=== PATIENT | female | born 1935 | race Hispanic/Latino ===

== ENCOUNTER 2018-08-13 20:13 | Inpatient (IN) | payer MEDICARE ==
--- NOTE | 2018-08-13 20:50 | Emergency Department Report ---
ED General Adult HPI - General Chief complaint: Medical Clearance Stated complaint: ELEVATED BUN AND CREATININE Time Seen by Provider: 08/13/18 20:21 Source: EMS Mode of arrival: Stretcher Limitations: Other - History of Present Illness Initial comments: 83-year-old female with history of Alzheimer's, chronic renal insufficiency who presents from [facility] for acute on chronic renal failure and UTI. Patient has labs from 12 days ago that showed BUN 28 and creatinine of 1.8. Patient's presents today with lab values of BUN of 91 and creatinine of 1.8. Patient has no complaints. -: unknown Associated Symptoms: denies: chest pain, headaches, nausea/vomiting, shortness of breath - Related Data Allergies Allergy/AdvReac Type Severity Reaction Status Date / Time Sulfa (Sulfonamide Allergy Unknown Verified 08/13/18 20:37 Antibiotics) ED Review of Systems ROS: Stated complaint: ELEVATED BUN AND CREATININE Other details as noted in HPI Comment: Unobtainable due to pts medical conditions (dementia) ED Past Medical Hx - Past Medical History Hx Dementia: Yes - Social History Smoking Status: Unknown if ever smoked Substance Use Type: None ED Physical Exam - General Limitations: Other General appearance: alert, in no apparent distress - Head Head exam: Present: atraumatic, normocephalic - Eye Eye exam: Present: normal appearance - ENT ENT exam: Present: mucous membranes moist - Neck Neck exam: Present: normal inspection - Respiratory Respiratory exam: Present: normal lung sounds bilaterally. Absent: respiratory distress - Cardiovascular Cardiovascular Exam: Present: regular rate, normal rhythm - GI/Abdominal GI/Abdominal exam: Present: soft, tenderness (mild suprapubic). Absent: distended - Extremities Exam Extremities exam: Present: normal inspection - Neurological Exam Neurological exam: Present: altered (oriented to self), CN II-XII intact. Absent: motor sensory deficit - Psychiatric Psychiatric exam: Present: normal affect, normal mood - Skin Skin exam: Present: warm, dry, intact, normal color ED Course Vital Signs 08/13/18 08/13/18 21:45 22:45 Pulse Rate 79 Respiratory 16 18 Rate Blood Pressure 157/38 [Right] O2 Sat by Pulse 98 Oximetry ED Medical Decision Making - Lab Data Result diagrams: 08/13/18 21:07 08/13/18 21:07 - Medical Decision Making 83-year-old female with dementia and history of CKD, from [facility] pres ents an acute on chronic renal failure. On 08/01 patient had the BUN 29 and creatinine of 1.8. Currently patient has BUN of 91 with creatinine of 3.9. Potassium and bicarbonate are normal. Patient does have evidence of UTI on UA. Urine culture sent, Rocephin given. Vitals are stable. Patient is pleasant with no complaints. Paperwork from [place] report no other symptoms. IV fluids given. ARF likely due to infection and dehydration. Will admit to hospitalist for further evaluation. - Differential Diagnosis ARF, UTI, hyperkalemia Critical care attestation.: If time is entered above; I have spent that time in minutes in the direct care of this critically ill patient, excluding procedure time. ED Disposition Clinical Impression: UTI (urinary tract infection), Acute on chronic renal insufficiency Disposition: OP ADMIT IP TO THIS HOSP Is pt being admited?: Yes Condition: Stable Referrals: CECILIA GOODEN MD [Primary Care Provider] - 3-5 Days Time of Disposition: 23:15
[2018-08-13 21:43] LABS: Basophils % (Auto) 0.2 % (0.0-1.8); Eosinophils # (Auto) 0.1 K/mm3 (0.0-0.4); Eosinophils % (Auto) 0.5 % (0.0-4.3); Hematocrit 37.9 % (30.3-42.9); Hemoglobin 13.2 gm/dl (10.1-14.3); Lymphocytes # (Auto) 1.6 K/mm3 (1.2-5.4); Lymphocytes % (Auto) 12.1 % (13.4-35.0); Mean Corpuscular HGB Conc 35 % (30-34); Mean Corpuscular Volume 89 fl (79-97); Monocytes # (Auto) 0.9 K/mm3 (0.0-0.8); Monocytes % (Auto) 6.5 % (0.0-7.3); Platelet Count 247 K/mm3 (140-440); Red Blood Count 4.27 M/mm3 (3.65-5.03)
[2018-08-13 22:16] LABS: Calcium 9.8 mg/dL (8.4-10.2)
[2018-08-13] MEDS ORDERED: NACL 0.9% 1000 ML 1,000 ML IV ONE (22:24)
[2018-08-13 22:59] LABS: Bacteria,Urine 2+ /HPF (Negative); Bilirubin,Urine NEG (Negative); Blood,Urine NEG (Negative); Color,Urine Yellow (Yellow); Urobilinogen,Urine < 2.0 mg/dL (<2.0)
[2018-08-13] MEDS ORDERED: ROCEPHIN/NS 1 GM/50 ML 1 GM/50 ML BAG IV ONE (23:07)
[2018-08-13] MEDS ORDERED: SODIUM CHLORIDE FLUSH SYRINGE 10 ML IV PRN (23:49)
[2018-08-13] MEDS ORDERED: ZOFRAN IV PRN (23:49)
[2018-08-13] MEDS ORDERED: TYLENOL PO PRN (23:49)
--- NOTE | 2018-08-13 23:49 | History and Physical Report ---
<EMILY LOW - Last Filed: 08/14/18 02:07> History of Present Illness Date of examination: 08/13/18 Date of admission: 08/13/2018 History of present illness: Patient is an 80 female with PMHx of dementia who was sent to the ER by [facility] for acute/on chronic renal insufficiency and UTI. Patient is alert but disoriented in no acute distress, she denies any pain, denies burning in micturition, denies urinary urgency, frequency or hematuria, denies back. In the ER laboratory values showed BUN 91, creatinine 2.9, elevated WBC, a UA was positive for increased WBC. Patient was unable to provide medical history due to dementia. Past History Past Medical History: other (dementia) Medications and Allergies Allergies Allergy/AdvReac Type Severity Reaction Status Date / Time Sulfa (Sulfonamide Allergy Unknown Verified 08/13/18 20:37 Antibiotics) Review of Systems ROS unobtainable: due to mental status (Dementia) Exam - Constitutional Vitals: Temp Pulse Resp BP Pulse Ox 79 18 157/38 98 08/13/18 21:45 08/13/18 22:45 08/13/18 21:45 08/13/18 21:45 General appearance: Present: no acute distress - EENT Eyes: Present: EOM intact ENT: hearing intact - Neck Neck: Present: supple, normal ROM - Respiratory Respiratory effort: normal Respiratory: bilateral: CTA - Cardiovascular Rhythm: regular Peripheral Pulses: within normal limits - Abdominal General gastrointestinal: Present: deferred Female genitourinary: Present: deferred - Rectal Rectal Exam: deferred - Integumentary Integumentary: Present: warm, dry - Musculoskeletal Musculoskeletal: strength equal bilaterally - Psychiatric Psychiatric: cooperative - Neurologic Neurologic: moves all extremities Results - Labs CBC & Chem 7: 08/13/18 21:07 08/13/18 21:07 Labs: Laboratory Last Values WBC 13.3 K/mm3 (4.5-11.0) H 08/13/18 21:07 RBC 4.27 M/mm3 (3.65-5.03) 08/13/18 21:07 Hgb 13.2 gm/dl (10.1-14.3) 08/13/18 21:07 Hct 37.9 % (30.3-42.9) 08/13/18 21:07 MCV 89 fl (79-97) 08/13/18 21:07 MCH 31 pg (28-32) 08/13/18 21:07 MCHC 35 % (30-34) H 08/13/18 21:07 RDW 13.0 % (13.2-15.2) L 08/13/18 21:07 Plt Count 247 K/mm3 (140-440) 08/13/18 21:07 Lymph % (Auto) 12.1 % (13.4-35.0) L 08/13/18 21:07 Josephine % (Auto) 6.5 % (0.0-7.3) 08/13/18 21:07 Eos % (Auto) 0.5 % (0.0-4.3) 08/13/18 21:07 Baso % (Auto) 0.2 % (0.0-1.8) 08/13/18 21:07 Lymph # 1.6 K/mm3 (1.2-5.4) 08/13/18 21:07 Josephine # 0.9 K/mm3 (0.0-0.8) H 08/13/18 21:07 Eos # 0.1 K/mm3 (0.0-0.4) 08/13/18 21:07 Baso # 0.0 K/mm3 (0.0-0.1) 08/13/18 21:07 Seg Neutrophils % 80.7 % (40.0-70.0) H 08/13/18 21:07 Seg Neutrophils # 10.7 K/mm3 (1.8-7.7) H 08/13/18 21:07 Sodium 139 mmol/L (137-145) 08/13/18 21:07 Potassium 4.5 mmol/L (3.6-5.0) 08/13/18 21:07 Chloride 100.7 mmol/L (98-107) 08/13/18 21:07 Carbon Dioxide 23 mmol/L (22-30) 08/13/18 21:07 20 mmol/L 08/13/18 21:07 BUN 91 mg/dL (7-17) H 08/13/18 21:07 3.9 mg/dL (0.7-1.2) H 08/13/18 21:07 Estimated GFR 11 ml/min 08/13/18 21:07 23 % 08/13/18 21:07 Glucose 181 mg/dL (65-100) H 08/13/18 21:07 Calcium 9.8 mg/dL (8.4-10.2) 08/13/18 21:07 Yellow (Yellow) 08/13/18 Unknown Slightly-cloudy (Clear) 08/13/18 Unknown 5.0 (5.0-7.0) 08/13/18 Unknown Ur Specific Joseph 1.009 (1.003-1.030) 08/13/18 Unknown 100 mg/dl mg/dL (Negative) 08/13/18 Unknown 50 mg/dL (Negative) 08/13/18 Unknown Neg mg/dL (Negative) 08/13/18 Unknown Neg (Negative) 08/13/18 Unknown Neg (Negative) 08/13/18 Unknown Neg (Negative) 08/13/18 Unknown < 2.0 mg/dL (<2.0) 08/13/18 Unknown Ur Leukocyte Esterase Sm (Negative) 08/13/18 Unknown 19.0 /HPF (0.0-6.0) H 08/13/18 Unknown 1.0 /HPF (0.0-6.0) 08/13/18 Unknown U Epithel Cells (Auto) < 1.0 /HPF (0-13.0) 08/13/18 Unknown 2+ /HPF (Negative) 08/13/18 Unknown Assessment and Plan Assessment and plan: 1. Acute on chronic renal insufficiency 2. UTI 3. Leukocytosis 4. Hyperglycemia 5. Dementia (baseline unknown) Plan: This is associated for acute renal insufficiency Consult nephrology for evaluation Started on IV antibiotics for UTI IV fluids for hydration and renal perfusion Monitor blood glucose twice a day 1 observation, patient is [id number] Monitor for safety Further plan per hospital course Advance Directives: Yes VTE prophylaxis?: Chemical Plan of care discussed with patient/family: Yes <ISAAC KRAMER - Last Filed: 08/14/18 23:44> History of Present Illness Date of admission: 08/13/18 23:50 Medications and Allergies Active Meds: Active Medications Acetaminophen (Tylenol) 650 mg PO Q4H PRN PRN Reason: Pain MILD(1-3)/Fever >100.5/[place] Last Admin: 08/14/18 22:11 Dose: 650 mg Documented by: Amlodipine Besylate (Norvasc) 5 mg PO DAILY [facility] Aspirin (Baby Aspirin) 81 mg PO QDAY [facility] Atorvastatin Calcium (Lipitor) 20 mg PO QHS [facility] Last Admin: 08/14/18 22:10 Dose: 20 mg Documented by: Furosemide (Lasix) 40 mg PO QDAY [facility] Heparin Sodium (Porcine) (Heparin) 5,000 unit SUB-Q Q12HR [facility] Last Admin: 08/14/18 22:05 Dose: 5,000 unit Documented by: Ceftriaxone Sodium (Rocephin/Ns 1 Gm/50 Ml) 1 gm in 50 mls @ 100 mls/hr IV Q24HR [facility]; Protocol Last Admin: 08/14/18 09:32 Dose: 100 mls/hr Documented by: Sodium Chloride (Nacl 0.9% 1000 Ml) 1,000 mls @ 100 mls/hr IV DIRECT [facility] Last Admin: 08/14/18 05:43 Dose: 100 mls/hr Documented by: Lisinopril (Zestril) 5 mg PO QDAY [facility] Memantine (Namenda) 10 mg PO BID [facility] Last Admin: 08/14/18 22:10 Dose: 10 mg Documented by: Metoprolol Tartrate (Lopressor) 25 mg PO BID [facility] Last Admin: 08/14/18 22:10 Dose: 25 mg Documented by: Multivitamins/Minerals (Theragran-M Tab) 1 each PO DAILY [facility] Ondansetron HCl (Zofran) 4 mg IV Q8H PRN PRN Reason: Nausea And Vomiting Sodium Chloride (Sodium Chloride Flush Syringe 10 Ml) 10 ml IV BID [facility] Last Admin: 08/14/18 22:10 Dose: 10 ml Documented by: Sodium Chloride (Sodium Chloride Flush Syringe 10 Ml) 10 ml IV PRN PRN PRN Reason: LINE FLUSH Exam - Constitutional Vitals: Temp Pulse Resp BP Pulse Ox 99.0 F 95 H 18 169/51 93 08/14/18 20:42 08/14/18 20:42 08/14/18 20:42 08/14/18 20:42 08/14/18 20:42 Results - Labs CBC & Chem 7: 08/13/18 21:07 08/13/18 21:07 Labs: Laboratory Last Values WBC 13.3 K/mm3 (4.5-11.0) H 08/13/18 21:07 RBC 4.27 M/mm3 (3.65-5.03) 08/13/18 21:07 Hgb 13.2 gm/dl (10.1-14.3) 08/13/18 21:07 Hct 37.9 % (30.3-42.9) 08/13/18 21:07 MCV 89 fl (79-97) 08/13/18 21:07 MCH 31 pg (28-32) 08/13/18 21:07 MCHC 35 % (30-34) H 08/13/18 21:07 RDW 13.0 % (13.2-15.2) L 08/13/18 21:07 Plt Count 247 K/mm3 (140-440) 08/13/18 21:07 Lymph % (Auto) 12.1 % (13.4-35.0) L 08/13/18 21:07 Josephine % (Auto) 6.5 % (0.0-7.3) 08/13/18 21:07 Eos % (Auto) 0.5 % (0.0-4.3) 08/13/18 21:07 Baso % (Auto) 0.2 % (0.0-1.8) 08/13/18 21:07 Lymph # 1.6 K/mm3 (1.2-5.4) 08/13/18 21:07 Josephine # 0.9 K/mm3 (0.0-0.8) H 08/13/18 21:07 Eos # 0.1 K/mm3 (0.0-0.4) 08/13/18 21:07 Baso # 0.0 K/mm3 (0.0-0.1) 08/13/18 21:07 Seg Neutrophils % 80.7 % (40.0-70.0) H 08/13/18 21:07 Seg Neutrophils # 10.7 K/mm3 (1.8-7.7) H 08/13/18 21:07 Sodium 139 mmol/L (137-145) 08/13/18 21:07 Potassium 4.5 mmol/L (3.6-5.0) 08/13/18 21:07 Chloride 100.7 mmol/L (98-107) 08/13/18 21:07 Carbon Dioxide 23 mmol/L (22-30) 08/13/18 21:07 20 mmol/L 08/13/18 21:07 BUN 91 mg/dL (7-17) H 08/13/18 21:07 3.9 mg/dL (0.7-1.2) H 08/13/18 21:07 Estimated GFR 11 ml/min 08/13/18 21:07 23 % 08/13/18 21:07 Glucose 181 mg/dL (65-100) H 08/13/18 21:07 Calcium 9.8 mg/dL (8.4-10.2) 08/13/18 21:07 Yellow (Yellow) 08/13/18 Unknown Slightly-cloudy (Clear) 08/13/18 Unknown 5.0 (5.0-7.0) 08/13/18 Unknown Ur Specific Joseph 1.009 (1.003-1.030) 08/13/18 Unknown 100 mg/dl mg/dL (Negative) 08/13/18 Unknown 50 mg/dL (Negative) 08/13/18 Unknown Neg mg/dL (Negative) 08/13/18 Unknown Neg (Negative) 08/13/18 Unknown Neg (Negative) 08/13/18 Unknown Neg (Negative) 08/13/18 Unknown < 2.0 mg/dL (<2.0) 08/13/18 Unknown Ur Leukocyte Esterase Sm (Negative) 08/13/18 Unknown 19.0 /HPF (0.0-6.0) H 08/13/18 Unknown 1.0 /HPF (0.0-6.0) 08/13/18 Unknown U Epithel Cells (Auto) < 1.0 /HPF (0-13.0) 08/13/18 Unknown 2+ /HPF (Negative) 08/13/18 Unknown Assessment and Plan Assessment and plan: A/P: Acute on CRF UTI I personally discussed the patient with the [employer] and I agree with the above assessment and plan
[2018-08-14] MEDS: NACL 0.9% 1000 ML 1,000 ML IV SCH (05:43)
[2018-08-14] MEDS: HEPARIN SUB-Q SCH ×2 (09:32→22:05)
[2018-08-14] MEDS: ROCEPHIN/NS 1 GM/50 ML 1 GM/50 ML BAG IV SCH (09:32)
[2018-08-14] MEDS: SODIUM CHLORIDE FLUSH SYRINGE 10 ML IV SCH ×2 (09:33→22:10)
--- NOTE | 2018-08-14 10:14 | Consultation ---
History of Present Illness - Reason for Consult Consult date: 08/14/18 acute renal failure, chronic renal failure Requesting physician: EMILY LOW - History of Present Illness Patient is an 80 female with PMHx of dementia who was sent to the ER by [facility] for acute/on chronic renal insufficiency and UTI. Patient is alert but disoriented in no acute distress, she denies any pain, denies burning in micturition, denies urinary urgency, frequency or hematuria, denies back. In the ER laboratory values showed BUN 91, creatinine 2.9, elevated WBC, a UA was positive for increased WBC. Patient was unable to provide medical history due to dementia. Past History Past Medical History: other (dementia) Review of Systems ROS unobtainable: due to mental status (Dementia) Past History Past Medical History: other (dementia) Medications and Allergies Allergies Allergy/AdvReac Type Severity Reaction Status Date / Time Sulfa (Sulfonamide Allergy Unknown Verified 08/13/18 20:37 Antibiotics) Active Meds: Active Medications Acetaminophen (Tylenol) 650 mg PO Q4H PRN PRN Reason: Pain MILD(1-3)/Fever >100.5/[place] Heparin Sodium (Porcine) (Heparin) 5,000 unit SUB-Q Q12HR [facility] Last Admin: 08/14/18 09:32 Dose: 5,000 unit Documented by: Ceftriaxone Sodium (Rocephin/Ns 1 Gm/50 Ml) 1 gm in 50 mls @ 100 mls/hr IV Q24HR [facility]; Protocol Last Admin: 08/14/18 09:32 Dose: 100 mls/hr Documented by: Sodium Chloride (Nacl 0.9% 1000 Ml) 1,000 mls @ 100 mls/hr IV DIRECT [facility] Last Admin: 08/14/18 05:43 Dose: 100 mls/hr Documented by: Ondansetron HCl (Zofran) 4 mg IV Q8H PRN PRN Reason: Nausea And Vomiting Sodium Chloride (Sodium Chloride Flush Syringe 10 Ml) 10 ml IV BID [facility] Last Admin: 08/14/18 09:33 Dose: 10 ml Documented by: Sodium Chloride (Sodium Chloride Flush Syringe 10 Ml) 10 ml IV PRN PRN PRN Reason: LINE FLUSH Exam - Vital Signs Vital signs: Vital Signs Pulse Resp BP Pulse Ox 79 16 157/38 98 08/13/18 21:45 08/13/18 21:45 08/13/18 21:45 08/13/18 21:45 - Physical Exam Narrative exam: General appearance: Present: no acute distress - EENT Eyes: Present: EOM intact ENT: hearing intact - Neck Neck: Present: supple, normal ROM - Respiratory Respiratory effort: normal Respiratory: bilateral: CTA - Cardiovascular Rhythm: regular Peripheral Pulses: within normal limits - Abdominal General gastrointestinal: Present: deferred Female genitourinary: Present: deferred - Rectal Rectal Exam: deferred - Integumentary Integumentary: Present: warm, dry - Musculoskeletal Musculoskeletal: strength equal bilaterally - Psychiatric Psychiatric: cooperative - Neurologic Neurologic: moves all extremities Results - Lab Results 08/13/18 21:07 08/13/18 21:07 Most recent lab results Calcium 9.8 mg/dL (8.4-10.2) 08/13/18 21:07 Assessment and Plan Impression: 1. Acute on chronic renal insufficiency 2. UTI 3. Leukocytosis 4. Hyperglycemia 5. Dementia (baseline unknown) 6. 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
--- NOTE | 2018-08-14 13:52 | Progress Note ---
Assessment and Plan 1. Acute on chronic renal insufficiency - due to vasomotor nephropathy 2. UTI 3. Leukocytosis due to UTI 4. Hyperglycemia 5. Dementia, at her baseline per daughter Plan: Consulted nephrology for evaluation Started on IV antibiotics for UTI IV fluids for hydration and renal perfusion Monitor blood glucose twice a day Resume home meds Monitor for safety, Further plan per hospital course d/c to SNF when renal function improves Subjective Date of service: 08/14/18 Interval history: Patient seen and examined. Medical records and medication list reviewed. No acute event overnight noted by the RN. Patient denies any chest pain or difficulty breathing. Patient is tolerating diet. Discussed plan of care at bedside with patient's daughter. Objective - Exam Narrative Exam: General appearance: Present: no acute distress - EENT Eyes: Present: EOM intact ENT: hearing intact - Neck Neck: Present: supple, normal ROM - Respiratory Respiratory effort: normal Respiratory: bilateral: CTA - Cardiovascular Rhythm: regular Peripheral Pulses: within normal limits - Abdominal General gastrointestinal: Present: deferred Female genitourinary: Present: deferred - Rectal Rectal Exam: deferred - Integumentary Integumentary: Present: warm, dry - Musculoskeletal Musculoskeletal: strength equal bilaterally - Psychiatric Psychiatric: cooperative - Neurologic Neurologic: moves all extremities, not oriented to time or place - Constitutional Vitals: Vital Signs - 12hr 08/14/18 08/14/18 08/14/18 03:10 06:45 07:37 Temperature 98.2 F 97.4 F L Pulse Rate 89 70 76 Respiratory 16 18 Rate Blood Pressure 129/52 149/47 O2 Sat by Pulse 95 96 Oximetry 08/14/18 08/14/18 08/14/18 07:38 13:08 13:09 Temperature 98.6 F Pulse Rate 78 90 89 Respiratory 18 Rate Blood Pressure 165/45 O2 Sat by Pulse 99 95 94 Oximetry - Labs CBC & Chem 7: 08/13/18 21:07 08/15/18 05:05 Labs: Abnormal lab results 08/13/18 08/13/18 08/13/18 Range/Units 21:07 21:07 Unknown WBC 13.3 H (4.5-11.0) K/mm3 MCHC 35 H (30-34) % RDW 13.0 L (13.2-15.2) % Lymph % (Auto) 12.1 L (13.4-35.0) % Coke # 0.9 H (0.0-0.8) K/mm3 Seg Neutrophils % 80.7 H (40.0-70.0) % Seg Neutrophils # 10.7 H (1.8-7.7) K/mm3 BUN 91 H (7-17) mg/dL Creatinine 3.9 H (0.7-1.2) mg/dL Glucose 181 H (65-100) mg/dL Urine WBC (Auto) 19.0 H (0.0-6.0) /HPF
[2018-08-14] MEDS ORDERED: LOPRESSOR PO SCH (22:00)
[2018-08-14] MEDS: NAMENDA PO SCH (22:10)
[2018-08-15] MEDS: NACL 0.9% 1000 ML 1,000 ML IV SCH (02:33)
[2018-08-15 06:32] LABS: Calcium 8.8 mg/dL (8.4-10.2)
[2018-08-15] MEDS ORDERED: NORVASC PO SCH ×2 (10:00)
[2018-08-15] MEDS ORDERED: LASIX PO SCH (10:00)
[2018-08-15] MEDS ORDERED: ZESTRIL PO SCH (10:00)
[2018-08-15] MEDS: THERAGRAN-M Tab PO SCH (10:13)
[2018-08-15] MEDS: BABY ASPIRIN PO SCH (10:13)
[2018-08-15] MEDS: HEPARIN SUB-Q SCH ×2 (10:13→21:12)
[2018-08-15] MEDS: NAMENDA PO SCH ×2 (10:13→21:11)
[2018-08-15] MEDS: ROCEPHIN/NS 1 GM/50 ML 1 GM/50 ML BAG IV SCH (10:14)
--- NOTE | 2018-08-15 10:57 | Progress Note ---
Assessment and Plan Impression: 1. Acute on chronic renal insufficiency 2. UTI 3. Leukocytosis 4. Hyperglycemia 5. Dementia (baseline unknown) 6. 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 Subjective Date of service: 08/15/18 Principal diagnosis: zach Interval history: resting in bed Objective - Exam Narrative Exam: General appearance: Present: no acute distress - EENT Eyes: Present: EOM intact ENT: hearing intact - Neck Neck: Present: supple, normal ROM - Respiratory Respiratory effort: normal Respiratory: bilateral: CTA - Cardiovascular Rhythm: regular Peripheral Pulses: within normal limits - Abdominal General gastrointestinal: Present: deferred Female genitourinary: Present: deferred - Rectal Rectal Exam: deferred - Integumentary Integumentary: Present: warm, dry - Musculoskeletal Musculoskeletal: strength equal bilaterally - Psychiatric Psychiatric: cooperative - Neurologic Neurologic: moves all extremities - Vital Signs Vital signs: Vital Signs - 12hr 08/15/18 08/15/18 08/15/18 00:19 01:43 04:35 Temperature 98.0 F 98.1 F Pulse Rate 79 72 Respiratory 18 18 20 Rate Blood Pressure 171/51 167/45 O2 Sat by Pulse 94 95 Oximetry 08/15/18 08/15/18 06:00 08:49 Temperature Pulse Rate 85 64 Respiratory Rate Blood Pressure 109/87 O2 Sat by Pulse 97 Oximetry - Lab 08/13/18 21:07 08/15/18 05:05 Most recent lab results Calcium 8.8 mg/dL (8.4-10.2) 08/15/18 05:05 Medications & Allergies - Medications Allergies/Adverse Reactions: Allergies Sulfa (Sulfonamide Antibiotics) Allergy (Verified 08/13/18 20:37) Unknown Home Medications: Home Medications Medication Instructions Recorded Confirmed Last Taken Type Aspirin [Aspirin BABY CHEW TAB] 81 mg PO QDAY 08/14/18 08/14/18 Unknown History AtorvaSTATin [Lipitor] 20 mg PO QHS 08/14/18 08/14/18 Unknown History Cinacalcet [Sensipar] 30 mg PO QDAY 08/14/18 08/14/18 Unknown History Furosemide [Lasix TAB] 40 mg PO QDAY 08/14/18 08/14/18 Unknown History Lisinopril [Zestril] 5 mg PO QDAY 08/14/18 08/14/18 Unknown History Memantine HCl [Namenda Xr] 28 mg PO DAILY 08/14/18 08/14/18 Unknown History Metoprolol Tartrate 25 mg PO BID 08/14/18 08/14/18 Unknown History Multivit-Min/Iron Fum/Folic AC 1 tab PO DAILY 08/14/18 08/14/18 Unknown History [Acdlu-Yundzax-Xpudukth Tablet] Omeprazole 20 mg PO DAILY 08/14/18 08/14/18 Unknown History Sevelamer Carbonate [Renvela] 800 mg PO DAILY 08/14/18 08/14/18 Unknown History amLODIPine [Norvasc] 5 mg PO DAILY 08/14/18 08/14/18 Unknown History Active Medications: Generic Name Dose Route Start Last Admin Trade Name Freq PRN Reason Stop Dose Admin Acetaminophen 650 mg 08/13/18 23:49 08/14/18 22:11 Tylenol PO 650 mg Q4H PRN Administration Pain MILD(1-3)/Fever >100.5/[place] Amlodipine Besylate 10 mg 08/15/18 10:00 Norvasc PO DAILY [facility] Aspirin 81 mg 08/15/18 10:00 08/15/18 10:13 Baby Aspirin PO 81 mg QDAY [facility] Administration Atorvastatin Calcium 20 mg 08/14/18 22:00 08/14/18 22:10 Lipitor PO 20 mg QHS [facility] Administration Furosemide 40 mg 08/15/18 10:00 08/15/18 10:13 Lasix PO 40 mg QDAY [facility] Administration Heparin Sodium (Porcine) 5,000 unit 08/14/18 10:00 08/15/18 10:13 Heparin SUB-Q 5,000 unit Q12HR [facility] Administration Ceftriaxone Sodium 1 gm in 50 mls @ 100 mls/hr 08/14/18 10:00 08/15/18 10:14 Rocephin/Ns 1 Gm/50 Ml IV 100 mls/hr Q24HR [facility] Administration Protocol Sodium Chloride 1,000 mls @ 100 mls/hr 08/14/18 04:00 08/15/18 02:33 Nacl 0.9% 1000 Ml IV 100 mls/hr DIRECT [facility] Administration Memantine 10 mg 08/14/18 22:00 08/15/18 10:13 Namenda PO 10 mg BID [facility] Administration Metoprolol Tartrate 50 mg 08/15/18 10:00 Lopressor PO BID [facility] Multivitamins/Minerals 1 each 08/15/18 10:00 08/15/18 10:13 Theragran-M Tab PO 1 each DAILY [facility] Administration Ondansetron HCl 4 mg 08/13/18 23:49 Zofran IV Q8H PRN Nausea And Vomiting Sodium Chloride 10 ml 08/14/18 10:00 08/14/18 22:10 Sodium Chloride Flush Syringe 10 Ml IV 10 ml BID [facility] Administration Sodium Chloride 10 ml 08/13/18 23:49 Sodium Chloride Flush Syringe 10 Ml IV PRN PRN LINE FLUSH
[2018-08-15] MEDS ORDERED: NACL 0.9% 1000 ML 1,000 ML with KCL 20 MEQ IV SCH (11:00)
[2018-08-15] MEDS: NS/KCL 20MEQ 20 MEQ/1,000 ML BAG IV SCH ×2 (12:37→21:08)
[2018-08-15] MEDS: NORVASC PO SCH (13:00)
[2018-08-15] MEDS: LOPRESSOR PO SCH ×2 (13:01→21:09)
[2018-08-15] MEDS: SODIUM CHLORIDE FLUSH SYRINGE 10 ML IV SCH ×2 (13:03→21:12)
--- NOTE | 2018-08-15 15:39 | Progress Note ---
Assessment and Plan 1. Acute on chronic renal insufficiency - due to vasomotor nephropathy 2. UTI 3. Leukocytosis due to UTI 4. Hyperglycemia 5. Dementia, at her baseline per daughter Plan: Consulted nephrology for evaluation Started on IV antibiotics for UTI IV fluids for hydration and renal perfusion Monitor blood glucose, Resumed home meds Monitor for safety, Further plan per hospital course d/c to SNF pending - likely Saturday, pending approval Brief History: Patient is an 80 female with PMHx of dementia who was sent to the ER by [facility] for acute/on chronic renal insufficiency and UTI. Subjective Date of service: 08/15/18 Principal diagnosis: zach Interval history: Patient seen and examined. Medical records and medication list reviewed. No acute event overnight noted by the RN. Patient denies any chest pain or difficulty breathing. Patient is tolerating diet. Discussed plan of care at bedside with patient's daughter. Objective - Exam Narrative Exam: General appearance: Present: no acute distress - EENT Eyes: Present: EOM intact ENT: hearing intact - Neck Neck: Present: supple, normal ROM - Respiratory Respiratory effort: normal Respiratory: bilateral: CTA - Cardiovascular Rhythm: regular Peripheral Pulses: within normal limits - Abdominal General gastrointestinal: Present: deferred Female genitourinary: Present: deferred - Rectal Rectal Exam: deferred - Integumentary Integumentary: Present: warm, dry - Musculoskeletal Musculoskeletal: strength equal bilaterally - Psychiatric Psychiatric: cooperative - Neurologic Neurologic: moves all extremities, not oriented to time or place - Constitutional Vitals: Vital Signs - 12hr 08/15/18 08/15/18 08/15/18 04:35 06:00 08:49 Temperature 98.1 F Pulse Rate 72 85 64 Respiratory 20 Rate Blood Pressure 167/45 109/87 O2 Sat by Pulse 95 97 Oximetry 08/15/18 08/15/18 08/15/18 11:50 13:00 13:01 Temperature Pulse Rate 77 77 77 Respiratory Rate Blood Pressure 159/52 159/52 159/52 O2 Sat by Pulse 97 Oximetry - Labs CBC & Chem 7: 08/13/18 21:07 08/15/18 05:05 Labs: Abnormal lab results 08/15/18 Range/Units 05:05 Potassium 3.4 L D (3.6-5.0) mmol/L Chloride 109.0 H (98-107) mmol/L Carbon Dioxide 19 L (22-30) mmol/L BUN 62 H (7-17) mg/dL Creatinine 2.8 H (0.7-1.2) mg/dL Glucose 101 H (65-100) mg/dL
[2018-08-15] MEDS: SODIUM BICARBONATE PO SCH (21:10)
[2018-08-16 06:35] LABS: Calcium 8.9 mg/dL (8.4-10.2)
--- NOTE | 2018-08-16 10:43 | Progress Note ---
Assessment and Plan 1. Acute on chronic renal insufficiency - due to vasomotor nephropathy 2. UTI 3. Leukocytosis due to UTI 4. Hyperglycemia 5. Dementia, at her baseline per daughter Plan: Continue with IV fluids for hydration and renal perfusion Consulted nephrology for evaluation Started on IV antibiotics for UTI Monitor blood glucose, Resumed home meds Monitor for safety, fall precaution DVT with Lovenox Further plan per hospital course Patient is code d/c to SNF pending - likely Saturday, pending approval Discussed With the Patient's Daughter by Bedside. She expressed Understanding. Subjective Date of service: 08/16/18 Principal diagnosis: zach, HTN Interval history: Pt seen and examined. Lying quietly in bed. c/o ulcer in the mouth and lips Objective - Exam Narrative Exam: Constitutional: Well-nourished well-developed. In no distress Head: Normocephalic atraumatic Eyes: Pupils are equal round and reactive to light Nose: No enlarged turbinates, no septal deviation. Mouth: Dry mucous membranes. Ulcers on the lips, gum Neck: Supple no thyromegaly. No bruit. No JVD Heart: Regular rate and rhythm, S1-S2 normal. No rubs murmurs or gallop Lungs: Clear to auscultation bilaterally. no rales or rhonchi Abdomen: Soft, nontender. Bowel sound are present. Extremities: No edema, no cyanosis, no clubbing. Neuro: Alert oriented Oriented x3. No focal sensory or motor deficit. Skin: No rashes or hyperpigmented spots Musculoskeletal system: No joint pain or swelling Hematological: No petechia or subcutanous hemorrhages. Immunological: No multiple septic spots on the skin Lymphatic: No generalized lymphadenopathy Psychiatry: Euthymic. Calm. - Constitutional Vitals: Vital Signs - 12hr 08/16/18 08/16/18 08/16/18 04:10 06:00 08:10 Temperature 98.4 F 98.1 F Pulse Rate 68 60 68 Respiratory 18 18 Rate Blood Pressure 155/85 179/39 O2 Sat by Pulse 95 97 Oximetry - Labs CBC & Chem 7: 08/13/18 21:07 08/16/18 05:18 Labs: Abnormal lab results 08/15/18 08/16/18 Range/Units 20:54 05:18 Sodium 147 H (137-145) mmol/L Chloride 115.9 H (98-107) mmol/L Carbon Dioxide 21 L (22-30) mmol/L BUN 35 H (7-17) mg/dL Creatinine 1.7 H (0.7-1.2) mg/dL Glucose 107 H (65-100) mg/dL POC Glucose 129 H (70-105)
[2018-08-16] MEDS: ROCEPHIN/NS 1 GM/50 ML 1 GM/50 ML BAG IV SCH (11:17)
[2018-08-16] MEDS: LOPRESSOR PO SCH ×2 (11:18→21:04)
[2018-08-16] MEDS: HEPARIN SUB-Q SCH ×2 (11:18→21:04)
[2018-08-16] MEDS: BABY ASPIRIN PO SCH (11:18)
[2018-08-16] MEDS: NAMENDA PO SCH ×2 (11:20→21:04)
[2018-08-16] MEDS: SODIUM BICARBONATE PO SCH ×2 (11:20→21:04)
[2018-08-16] MEDS: NORVASC PO SCH (11:20)
[2018-08-16] MEDS: THERAGRAN-M Tab PO SCH (11:20)
[2018-08-16] MEDS: DIFLUCAN PO SCH (11:23)
[2018-08-16] MEDS: SODIUM CHLORIDE FLUSH SYRINGE 10 ML IV SCH ×2 (11:25→21:31)
--- NOTE | 2018-08-16 15:23 | Progress Note ---
Assessment and Plan - Patient Problems (1) UTI (urinary tract infection) Current Visit: Yes Status: Acute Plan to address problem: Urinary tract infection continue antibiotics (2) Acute on chronic renal insufficiency Current Visit: Yes Status: Acute Plan to address problem: Acute on chronic renal insufficiency as baseline chronic kidney disease stage III Creatinine worsened on prior to admission Etiology of acute kidney injury secondary to volume depletion Improving with fluids Recheck renal function panel (3) Hypernatremia Current Visit: Yes Status: Acute Plan to address problem: Hypernatremia Sodium worsening We'll change to D5 water Recheck renal function panel improve access to free water (4) Metabolic acidosis Current Visit: Yes Status: Acute Plan to address problem: Metabolic acidosis is a stat sodium bicarbonate 1300 mg twice a day Subjective Principal diagnosis: zach, HTN Interval history: 83-year-old lady with medical history significant for hypertension admitted with acute kidney injury in setting of infection and dehydration patient we will to the family at bedside still has some cold sores in her mouth denies any shortness of breath does not have any lower extremity edema Objective - Vital Signs Vital signs: Vital Signs - 12hr 08/16/18 08/16/18 08/16/18 04:10 06:00 08:10 Temperature 98.4 F 98.1 F Pulse Rate 68 60 68 Respiratory 18 18 Rate Blood Pressure 155/85 179/39 O2 Sat by Pulse 95 97 Oximetry - General Appearance General appearance: well-developed, well-nourished EENT: ATNC, PERRL Neck: no JVD Respiratory: Present: Clear to Ascultation Cardiology: regular, S1S2 Gastrointestinal: normal, normoactive bowel sounds Integumentary: no rash Neurologic: alert and oriented x3, CN 3-12 intact - Lab 08/13/18 21:07 08/16/18 05:18 Most recent lab results Calcium 8.9 mg/dL (8.4-10.2) 08/16/18 05:18 Medications & Allergies - Medications Allergies/Adverse Reactions: Allergies Sulfa (Sulfonamide Antibiotics) Allergy (Verified 08/13/18 20:37) Unknown Home Medications: Home Medications Medication Instructions Recorded Confirmed Last Taken Type Aspirin [Aspirin BABY CHEW TAB] 81 mg PO QDAY 08/14/18 08/14/18 Unknown History AtorvaSTATin [Lipitor] 20 mg PO QHS 08/14/18 08/14/18 Unknown History Cinacalcet [Sensipar] 30 mg PO QDAY 08/14/18 08/14/18 Unknown History Furosemide [Lasix TAB] 40 mg PO QDAY 08/14/18 08/14/18 Unknown History Lisinopril [Zestril] 5 mg PO QDAY 08/14/18 08/14/18 Unknown History Memantine HCl [Namenda Xr] 10 mg PO BID 08/14/18 08/15/18 Unknown History Metoprolol Tartrate 25 mg PO BID 08/14/18 08/14/18 Unknown History Multivit-Min/Iron Fum/Folic AC 1 tab PO DAILY 08/14/18 08/14/18 Unknown History [Krodp-Nlidszt-Dxeatjme Tablet] Omeprazole 20 mg PO DAILY 08/14/18 08/14/18 Unknown History Sevelamer Carbonate [Renvela] 800 mg PO DAILY 08/14/18 08/14/18 Unknown History amLODIPine [Norvasc] 5 mg PO DAILY 08/14/18 08/14/18 Unknown History ALPRAZolam [Xanax TAB] 0.5 mg PO BID PRN 08/15/18 08/15/18 Unknown History QUEtiapine [SEROquel] 25 mg PO QHS 08/15/18 08/15/18 Unknown History Sertraline [Zoloft] 100 mg PO QDAY 08/15/18 08/15/18 Unknown History Active Medications: Generic Name Dose Route Start Last Admin Trade Name Freq PRN Reason Stop Dose Admin Acetaminophen 650 mg 08/13/18 23:49 08/14/18 22:11 Tylenol PO 650 mg Q4H PRN Administration Pain MILD(1-3)/Fever >100.5/BOURNE Amlodipine Besylate 10 mg 08/15/18 10:00 08/16/18 11:20 Norvasc PO 10 mg DAILY KRISS Administration Aspirin 81 mg 08/15/18 10:00 08/16/18 11:18 Baby Aspirin PO 81 mg QDAY KRISS Administration Atorvastatin Calcium 20 mg 08/14/18 22:00 08/15/18 21:11 Lipitor PO 20 mg QHS KRISS Administration Cinacalcet 30 mg 08/16/18 16:00 Sensipar PO QDAY KRISS Fluconazole 100 mg 08/16/18 10:00 08/16/18 11:23 Diflucan PO 100 mg QDAY KRISS Administration Heparin Sodium (Porcine) 5,000 unit 08/14/18 10:00 08/16/18 11:18 Heparin SUB-Q 5,000 unit Q12HR KRISS Administration Ceftriaxone Sodium 1 gm in 50 mls @ 100 mls/hr 08/14/18 10:00 08/16/18 11:17 Rocephin/Ns 1 Gm/50 Ml IV 100 mls/hr Q24HR KRISS Administration Protocol Potassium Chloride/Sodium Chloride 20 meq in 1,000 mls @ 100 mls/hr 08/15/18 12:00 08/15/18 21:08 Ns/Kcl 20meq IV 100 mls/hr DIRECT KRISS Administration Memantine 10 mg 08/14/18 22:00 08/16/18 11:20 Namenda PO 10 mg BID KRISS Administration Metoprolol Tartrate 50 mg 08/15/18 10:00 08/16/18 11:18 Lopressor PO 50 mg BID KRISS Administration Miscellaneous Medication 20 mg 08/16/18 15:30 Omeprazole [Omeprazole] PO DAILY [facility] Multivitamins/Minerals 1 each 08/15/18 10:00 08/16/18 11:20 Theragran-M Tab PO 1 each DAILY KRISS Administration Nystatin 100,000 unit 08/16/18 20:00 Nystatin PO TID KRISS Ondansetron HCl 4 mg 08/13/18 23:49 Zofran IV Q8H PRN Nausea And Vomiting Quetiapine Fumarate 25 mg 08/15/18 22:00 08/15/18 21:11 Seroquel PO 25 mg QHS KRISS Administration Quetiapine Fumarate 25 mg 08/16/18 22:00 Seroquel PO QHS KRISS Sertraline HCl 100 mg 08/16/18 16:00 Zoloft PO QDAY KRISS Sevelamer Carbonate 800 mg 08/16/18 16:00 Renvela PO DAILY KRISS Sodium Bicarbonate 1,300 mg 08/15/18 22:00 08/16/18 11:20 Sodium Bicarbonate PO 1,300 mg BID KRISS Administration Sodium Chloride 10 ml 08/14/18 10:00 08/16/18 11:25 Sodium Chloride Flush Syringe 10 Ml IV 10 ml BID KRISS Administration Sodium Chloride 10 ml 08/13/18 23:49 Sodium Chloride Flush Syringe 10 Ml IV PRN PRN LINE FLUSH
[2018-08-16] MEDS ORDERED: NON-FORMULARY (Omeprazole [Omeprazole] 20 MG) PO SCH (15:30)
[2018-08-16] MEDS: RENVELA PO SCH (19:35)
[2018-08-16] MEDS: SENSIPAR PO SCH (19:35)
[2018-08-16] MEDS: ZOLOFT PO SCH (19:36)
[2018-08-16] MEDS: NYSTATIN PO SCH (20:12)
[2018-08-16] MEDS: D5W 1,000 ML IV SCH (21:04)
[2018-08-17] MEDS ORDERED: APRESOLINE IV PRN (05:52)
[2018-08-17 05:59] LABS: Basophils # (Auto) 0.1 K/mm3 (0.0-0.1); Basophils % (Auto) 0.5 % (0.0-1.8); Eosinophils # (Auto) 0.3 K/mm3 (0.0-0.4); Eosinophils % (Auto) 2.4 % (0.0-4.3); Hematocrit 34.8 % (30.3-42.9); Hemoglobin 11.7 gm/dl (10.1-14.3); Lymphocytes # (Auto) 1.6 K/mm3 (1.2-5.4); Mean Corpuscular HGB Conc 34 % (30-34); Mean Corpuscular Volume 89 fl (79-97); Monocytes # (Auto) 0.6 K/mm3 (0.0-0.8); Monocytes % (Auto) 5.2 % (0.0-7.3); Platelet Count 211 K/mm3 (140-440)
[2018-08-17] MEDS: D5W 1,000 ML IV SCH ×2 (06:05→15:39)
[2018-08-17 06:26] LABS: Calcium 8.5 mg/dL (8.4-10.2)
[2018-08-17] MEDS: NYSTATIN PO SCH ×3 (09:51→20:30)
[2018-08-17] MEDS: SODIUM BICARBONATE PO SCH ×2 (09:52→22:12)
[2018-08-17] MEDS: DIFLUCAN PO SCH (09:52)
[2018-08-17] MEDS: ROCEPHIN/NS 1 GM/50 ML 1 GM/50 ML BAG IV SCH (09:52)
[2018-08-17] MEDS: ZOLOFT PO SCH (09:53)
[2018-08-17] MEDS: SENSIPAR PO SCH (09:53)
[2018-08-17] MEDS: NAMENDA PO SCH ×2 (09:53→22:12)
[2018-08-17] MEDS: THERAGRAN-M Tab PO SCH (09:53)
[2018-08-17] MEDS: BABY ASPIRIN PO SCH (09:54)
[2018-08-17] MEDS: PROTONIX PO SCH (09:54)
[2018-08-17] MEDS: RENVELA PO SCH (09:54)
[2018-08-17] MEDS: NORVASC PO SCH (09:54)
[2018-08-17] MEDS: LOPRESSOR PO SCH ×2 (09:54→22:13)
[2018-08-17] MEDS: HEPARIN SUB-Q SCH ×2 (09:54→22:12)
[2018-08-17] MEDS: SODIUM CHLORIDE FLUSH SYRINGE 10 ML IV SCH ×2 (09:55→22:14)
[2018-08-17] MEDS ORDERED: PROTONIX PO SCH (10:00)
--- NOTE | 2018-08-17 11:13 | Progress Note ---
Assessment and Plan 1. Acute on chronic renal insufficiency - due to vasomotor nephropathy 2. UTI 3. Leukocytosis due to UTI 4. Hyperglycemia 5. Dementia, at her baseline per daughter 6. hypertension Plan: Continue with IV fluids for hydration and renal perfusion nephrology consulted for evaluation on IV antibiotics for UTI Monitor blood glucose, Resumed home meds Monitor for safety, fall precaution optimize BP control DVT with Lovenox Further plan per hospital course Patient is code d/c to SNF pending - likely Saturday, pending approval Discussed With the Patient's Daughter by Bedside. She expressed Understanding. Subjective Date of service: 08/17/18 Principal diagnosis: zach, HTN Interval history: Pt seen and examined. Lying quietly in bed. c/o ulcer in the mouth and lips Objective - Exam Narrative Exam: Constitutional: Well-nourished well-developed. In no distress Head: Normocephalic atraumatic Eyes: Pupils are equal round and reactive to light Nose: No enlarged turbinates, no septal deviation. Mouth: Dry mucous membranes. Ulcers on the lips, gum Neck: Supple no thyromegaly. No bruit. No JVD Heart: Regular rate and rhythm, S1-S2 normal. No rubs murmurs or gallop Lungs: Clear to auscultation bilaterally. no rales or rhonchi Abdomen: Soft, nontender. Bowel sound are present. Extremities: No edema, no cyanosis, no clubbing. Neuro: Alert oriented Oriented x3. No focal sensory or motor deficit. Skin: No rashes or hyperpigmented spots Musculoskeletal system: No joint pain or swelling Hematological: No petechia or subcutanous hemorrhages. Immunological: No multiple septic spots on the skin Lymphatic: No generalized lymphadenopathy Psychiatry: Euthymic. Calm. - Constitutional Vitals: Vital Signs - 12hr 08/17/18 08/17/18 08/17/18 00:05 05:31 06:00 Temperature Pulse Rate 71 65 57 L Respiratory 18 18 Rate Blood Pressure 183/34 197/62 O2 Sat by Pulse 96 95 Oximetry 08/17/18 08:23 Temperature 98.3 F Pulse Rate 64 Respiratory 16 Rate Blood Pressure 171/56 O2 Sat by Pulse 95 Oximetry - Labs CBC & Chem 7: 08/17/18 05:25 08/17/18 05:25 Labs: Abnormal lab results 08/16/18 08/17/1819 Range/Units 20:35 05:25 05:25 WBC 11.5 H (4.5-11.0) K/mm3 RDW 13.0 L (13.2-15.2) % Seg Neutrophils % 77.9 H (40.0-70.0) % Seg Neutrophils # 9.0 H (1.8-7.7) K/mm3 Chloride 108.5 H (98-107) mmol/L BUN 22 H (7-17) mg/dL Glucose 153 H (65-100) mg/dL POC Glucose 145 H (70-105)
--- NOTE | 2018-08-17 16:40 | Progress Note ---
Assessment and Plan - Patient Problems (1) UTI (urinary tract infection) Current Visit: Yes Status: Acute Plan to address problem: Urinary tract infection continue antibiotics (2) Acute on chronic renal insufficiency Current Visit: Yes Status: Acute Plan to address problem: Acute on chronic renal insufficiency as baseline chronic kidney disease stage II I Creatinine worsened on prior to admission Etiology of acute kidney injury secondary to volume depletion Improving with fluids Recheck renal function panel (3) Hypernatremia Current Visit: Yes Status: Acute Plan to address problem: Hypernatremia:resolved. Sodium improved. stop D5 water Recheck renal function panel improve access to free water (4) Metabolic acidosis Current Visit: Yes Status: Acute Plan to address problem: Metabolic acidosis continue sodium bicarbonate 1300 mg twice a day Subjective Principal diagnosis: zach, HTN Interval history: 83-year-old lady with medical history significant for hypertension admitted with acute kidney injury in setting of infection and dehydration patient we will to the family at bedside still has some cold sores in her mouth denies any shortness of breath does not have any lower extremity edema Patient seen today systolic BP elevated she is doing well. daughter at bedside. Objective - Vital Signs Vital signs: Vital Signs - 12hr 08/17/18 08/17/18 08/17/18 05:31 06:00 08:23 Temperature 98.3 F Pulse Rate 65 57 L 64 Respiratory 18 16 Rate Blood Pressure 197/62 171/56 Blood Pressure [Right] O2 Sat by Pulse 95 95 Oximetry 08/17/18 08/17/18 08/17/18 12:44 14:00 14:25 Temperature Pulse Rate 63 66 64 Respiratory 20 16 Rate Blood Pressure 163/136 Blood Pressure 171/44 [Right] O2 Sat by Pulse 96 Oximetry 08/17/18 08/17/18 15:01 15:02 Temperature Pulse Rate 66 63 Respiratory 16 Rate Blood Pressure Blood Pressure 160/32 185/47 [Right] O2 Sat by Pulse Oximetry - General Appearance General appearance: well-developed, well-nourished EENT: ATNC, PERRL, mucous membranes moist Neck: no JVD Respiratory: Present: Clear to Ascultation Cardiology: regular, S1S2 Gastrointestinal: normal, normoactive bowel sounds Integumentary: no rash Neurologic: alert and oriented x3, CN 3-12 intact Musculoskeletal: erythema Psychiatric: mood/affect appropriate - Lab 08/17/18 05:25 08/17/18 05:25 Most recent lab results Calcium 8.5 mg/dL (8.4-10.2) 08/17/18 05:25 Medications & Allergies - Medications Allergies/Adverse Reactions: Allergies Sulfa (Sulfonamide Antibiotics) Allergy (Verified 08/13/18 20:37) Unknown Home Medications: Home Medications Medication Instructions Recorded Confirmed Last Taken Type Aspirin [Aspirin BABY CHEW TAB] 81 mg PO QDAY 08/14/18 08/14/18 Unknown History AtorvaSTATin [Lipitor] 20 mg PO QHS 08/14/18 08/14/18 Unknown History Cinacalcet [Sensipar] 30 mg PO QDAY 08/14/18 08/14/18 Unknown History Furosemide [Lasix TAB] 40 mg PO QDAY 08/14/18 08/14/18 Unknown History Lisinopril [Zestril] 5 mg PO QDAY 08/14/18 08/14/18 Unknown History Memantine HCl [Namenda Xr] 10 mg PO BID 08/14/18 08/15/18 Unknown History Metoprolol Tartrate 25 mg PO BID 08/14/18 08/14/18 Unknown History Multivit-Min/Iron Fum/Folic AC 1 tab PO DAILY 08/14/18 08/14/18 Unknown History [Uongc-Fxpuelv-Jnhvdndn Tablet] Omeprazole 20 mg PO DAILY 08/14/18 08/14/18 Unknown History Sevelamer Carbonate [Renvela] 800 mg PO DAILY 08/14/18 08/14/18 Unknown History amLODIPine [Norvasc] 5 mg PO DAILY 08/14/18 08/14/18 Unknown History ALPRAZolam [Xanax TAB] 0.5 mg PO BID PRN 08/15/18 08/15/18 Unknown History QUEtiapine [SEROquel] 25 mg PO QHS 08/15/18 08/15/18 Unknown History Sertraline [Zoloft] 100 mg PO QDAY 08/15/18 08/15/18 Unknown History Active Medications: Generic Name Dose Route Start Last Admin Trade Name Freq PRN Reason Stop Dose Admin Acetaminophen 650 mg 08/13/18 23:49 08/14/18 22:11 Tylenol PO 650 mg Q4H PRN Administration Pain MILD(1-3)/Fever >100.5/BOURNE Amlodipine Besylate 10 mg 08/15/18 10:00 08/17/18 09:54 Norvasc PO 10 mg DAILY KRISS Administration Aspirin 81 mg 08/15/18 10:00 08/17/18 09:54 Baby Aspirin PO 81 mg QDAY KRISS Administration Atorvastatin Calcium 20 mg 08/14/18 22:00 08/16/18 21:04 Lipitor PO 20 mg QHS KRISS Administration Cinacalcet 30 mg 08/16/18 16:00 08/17/18 09:53 Sensipar PO 30 mg QDAY KRISS Administration Fluconazole 100 mg 08/16/18 10:00 08/17/18 09:52 Diflucan PO 100 mg QDAY KRISS Administration Heparin Sodium (Porcine) 5,000 unit 08/14/18 10:00 08/17/18 09:54 Heparin SUB-Q 5,000 unit Q12HR KRISS Administration Hydralazine HCl 10 mg 08/17/18 05:52 08/17/18 06:06 Apresoline IV 10 mg Q4H PRN Administration Blood Pressure Ceftriaxone Sodium 1 gm in 50 mls @ 100 mls/hr 08/14/18 10:00 08/17/18 09:52 Rocephin/Ns 1 Gm/50 Ml IV 100 mls/hr Q24HR KRISS Administration Protocol Dextrose 1,000 mls @ 100 mls/hr 08/16/18 16:00 08/17/18 15:39 D5w IV 100 mls/hr DIRECT KRISS Administration Memantine 10 mg 08/14/18 22:00 08/17/18 09:53 Namenda PO 10 mg BID KRISS Administration Metoprolol Tartrate 50 mg 08/15/18 10:00 08/17/18 09:54 Lopressor PO 50 mg BID KRISS Administration Multivitamins/Minerals 1 each 08/15/18 10:00 08/17/18 09:53 Theragran-M Tab PO 1 each DAILY KRISS Administration Nystatin 100,000 unit 08/16/18 20:00 08/17/18 15:15 Nystatin PO 100,000 unit TID KRISS Administration Ondansetron HCl 4 mg 08/13/18 23:49 Zofran IV Q8H PRN Nausea And Vomiting Pantoprazole Sodium 20 mg 08/17/18 10:00 08/17/18 09:54 Protonix PO 20 mg QDAY KRISS Administration Quetiapine Fumarate 25 mg 08/16/18 22:00 08/16/18 21:52 Seroquel PO Not Given QHS KRISS Sertraline HCl 100 mg 08/16/18 16:00 08/17/18 09:53 Zoloft PO 100 mg QDAY KRISS Administration Sevelamer Carbonate 800 mg 08/16/18 16:00 08/17/18 09:54 Renvela PO 800 mg DAILY KRISS Administration Sodium Bicarbonate 1,300 mg 08/15/18 22:00 08/17/18 09:52 Sodium Bicarbonate PO 1,300 mg BID KRISS Administration Sodium Chloride 10 ml 08/14/18 10:00 08/17/18 09:55 Sodium Chloride Flush Syringe 10 Ml IV 10 ml BID KRISS Administration Sodium Chloride 10 ml 08/13/18 23:49 Sodium Chloride Flush Syringe 10 Ml IV PRN PRN LINE FLUSH
[2018-08-17] MEDS ORDERED: XANAX PO PRN (16:41)
[2018-08-18 06:13] LABS: Basophils % (Auto) 0.3 % (0.0-1.8); Eosinophils # (Auto) 0.4 K/mm3 (0.0-0.4); Eosinophils % (Auto) 3.3 % (0.0-4.3); Hematocrit 33.1 % (30.3-42.9); Hemoglobin 11.3 gm/dl (10.1-14.3); Lymphocytes # (Auto) 1.7 K/mm3 (1.2-5.4); Lymphocytes % (Auto) 15.5 % (13.4-35.0); Mean Corpuscular HGB Conc 34 % (30-34); Mean Corpuscular Volume 88 fl (79-97); Monocytes # (Auto) 0.6 K/mm3 (0.0-0.8); Monocytes % (Auto) 5.3 % (0.0-7.3); Platelet Count 211 K/mm3 (140-440); Red Blood Count 3.74 M/mm3 (3.65-5.03); Red Cell Distribution Width 12.7 % (13.2-15.2)
[2018-08-18 06:35] LABS: Calcium 8.3 mg/dL (8.4-10.2)
[2018-08-18] MEDS: NYSTATIN PO SCH (08:39)
[2018-08-18] MEDS: ROCEPHIN/NS 1 GM/50 ML 1 GM/50 ML BAG IV SCH (10:20)
[2018-08-18] MEDS: DIFLUCAN PO SCH (10:29)
[2018-08-18] MEDS: SODIUM BICARBONATE PO SCH (10:29)
[2018-08-18] MEDS: NAMENDA PO SCH (10:29)
[2018-08-18] MEDS: ZOLOFT PO SCH (10:29)
[2018-08-18] MEDS: RENVELA PO SCH (10:29)
[2018-08-18] MEDS: SENSIPAR PO SCH (10:29)
[2018-08-18] MEDS: THERAGRAN-M Tab PO SCH (10:30)
[2018-08-18] MEDS: PROTONIX PO SCH (10:30)
[2018-08-18] MEDS: BABY ASPIRIN PO SCH (10:30)
[2018-08-18] MEDS: SODIUM CHLORIDE FLUSH SYRINGE 10 ML IV SCH (10:30)
[2018-08-18] MEDS: NORVASC PO SCH (10:30)
[2018-08-18] MEDS: LOPRESSOR PO SCH (10:32)
[2018-08-18] MEDS: HEPARIN SUB-Q SCH (10:33)
--- NOTE | 2018-08-18 11:32 | Discharge Summary ---
Providers - Providers Date of Admission: 08/13/18 23:50 Date of discharge: 08/18/18 Attending physician: GAMALIEL RAMIREZ 08/14/18 02:36 Consult to Physician [CONS] Routine Comment: Consulting Provider: MADHAV GARCIA Physician Instructions: Reason For Exam: BRANDON 08/17/18 10:21 Physical Therapy Evaluation and Treat [CONS] Routine Comment: Reason For Exam: To improve range of motion/mintain muscle use. Primary care physician: CECILIA GOODEN MD Hospitalization Condition: Stable Hospital course: Brief History: Patient is an 80 female with PMHx of dementia who was sent to the ER by [facility] for acute/on chronic renal insufficiency and UTI. Consulted nephrology for evaluation, Started on IV antibiotics for UTI, IV fluids for hydration and renal perfusion, Monitored blood glucose, Resumed home meds, added fluconazole for oral candidiasis. Patient was clinically optimized, then discharged back to SNF in stable condition. Discharge diagnosis and management: 1. Acute on chronic renal insufficiency - due to vasomotor nephropathy 2. UTI 3. Leukocytosis due to UTI w/o sepsis 4. Hyperglycemia 5. Dementia, at her baseline per daughter 6. hypertension 7. oral candidiasis Physical exam General appearance: Present: no acute distress - EENT Eyes: Present: EOM intact ENT: hearing intact - Neck Neck: Present: supple, normal ROM - Respiratory Respiratory effort: normal Respiratory: bilateral: CTA - Cardiovascular Rhythm: regular Peripheral Pulses: within normal limits - Abdominal General gastrointestinal: Present: deferred Female genitourinary: Present: deferred - Rectal Rectal Exam: deferred - Integumentary Integumentary: Present: warm, dry - Musculoskeletal Musculoskeletal: strength equal bilaterally - Psychiatric Psychiatric: cooperative - Neurologic Neurologic: moves all extremities, not oriented to time or place Disposition: DC/[place]-03 SNF [facility] Time spent for discharge: 34 minutes Core Measure Documentation - Palliative Care Palliative Care/ Comfort Measures: Not Applicable - Core Measures Any of the following diagnoses?: history only Exam - Constitutional Vitals: Temp Pulse Resp BP Pulse Ox 98.8 F 60 16 161/49 92 08/18/18 03:49 08/18/18 06:01 08/18/18 03:49 08/18/18 10:32 08/18/18 03:49 Plan Activity: fall precautions Weight Bearing Status: Non-Weight Bearing Diet: low fat, low salt Follow up with: CECILIA GOODEN MD [Primary Care Provider] - 3-5 Days Prescriptions: Fluconazole [Diflucan TAB] 100 mg PO QDAY #4 tablet Nystatin [Nystatin SUSP] 100,000 unit PO TID 4 Days #90 ml
--- NOTE | 2018-08-18 12:50 | Progress Note ---
Assessment and Plan Impression * Acute on chronic renal failure * Urinary tract infection * Hypernatremia * Metabolic acidosis * Hypertension Recommendations * Patient's renal function has improved. Most likely at baseline. * She sees a commis chef in [place], [place]. Has stage III chronic kidney disease according to her daughter * Patient is currently on Sensipar 30 mg daily. Serum calcium is 8.3. However I do not have a corresponding albumin to correct the calcium. She would also need a follow-up PTH level. * Her acidosis has been corrected * Hyponatremia has been corrected as well. She is currently off IV fluid * No objection to discharge from renal standpoint * Discussed with patient's daughter at bedside Subjective Date of service: 08/18/18 Principal diagnosis: zach, HTN Interval history: Patient is comfortable today. Denies any shortness of breath. No nausea or vomiting. Patient's daughter at bedside. Plans to discharge to long-term noted. Objective - Vital Signs Vital signs: Vital Signs - 12hr 08/18/18 08/18/18 08/18/18 02:00 03:49 06:01 Temperature 98.8 F Pulse Rate 64 60 Respiratory 18 16 Rate Blood Pressure 176/51 Blood Pressure [Right] O2 Sat by Pulse 92 Oximetry 08/18/18 08/18/18 08/18/18 10:30 10:32 12:36 Temperature 98.4 F Pulse Rate 60 Respiratory 18 Rate Blood Pressure 161/49 161/49 Blood Pressure 168/40 [Right] O2 Sat by Pulse 97 Oximetry - General Appearance General appearance: well-developed, well-nourished, appears stated age EENT: PERRL, mucous membranes moist Neck: no JVD, no thyromegaly, no carotid bruit, supple Respiratory: Present: Clear to Ascultation Cardiology: regular, normal heart rate, S1S2, no murmurs Gastrointestinal: normal, normoactive bowel sounds Integumentary: no rash, other - Lab 08/18/18 05:19 08/18/18 05:19 Most recent lab results Calcium 8.3 mg/dL (8.4-10.2) L 08/18/18 05:19 Medications & Allergies - Medications Allergies/Adverse Reactions: Allergies Sulfa (Sulfonamide Antibiotics) Allergy (Verified 08/13/18 20:37) Unknown Home Medications: Home Medications Medication Instructions Recorded Confirmed Last Taken Type Aspirin [Aspirin BABY CHEW TAB] 81 mg PO QDAY 08/14/18 08/14/18 Unknown History AtorvaSTATin [Lipitor] 20 mg PO QHS 08/14/18 08/14/18 Unknown History Cinacalcet [Sensipar] 30 mg PO QDAY 08/14/18 08/14/18 Unknown History Memantine HCl [Namenda Xr] 10 mg PO BID 08/14/18 08/15/18 Unknown History Metoprolol Tartrate 25 mg PO BID 08/14/18 08/14/18 Unknown History Multivit-Min/Iron Fum/Folic AC 1 tab PO DAILY 08/14/18 08/14/18 Unknown History [Bbhdf-Rvrgpxe-Yvvwkrku Tablet] Sevelamer Carbonate [Renvela] 800 mg PO DAILY 08/14/18 08/14/18 Unknown History QUEtiapine [SEROquel] 25 mg PO QHS 08/15/18 08/15/18 Unknown History Sertraline [Zoloft] 100 mg PO QDAY 08/15/18 08/15/18 Unknown History Fluconazole [Diflucan TAB] 100 mg PO QDAY #4 tablet 08/18/18 Unknown Rx Nystatin [Nystatin SUSP] 100,000 unit PO TID 4 Days #90 ml 08/18/18 Unknown Rx Pantoprazole [Protonix TAB] 20 mg PO QDAY tablet. 08/18/18 Unknown Rx amLODIPine [Norvasc] 10 mg PO DAILY tablet 08/18/18 Unknown Rx Active Medications: Generic Name Dose Route Start Last Admin Trade Name Freq PRN Reason Stop Dose Admin Acetaminophen 650 mg 08/13/18 23:49 08/14/18 22:11 Tylenol PO 650 mg Q4H PRN Administration Pain MILD(1-3)/Fever >100.5/BOURNE Alprazolam 1 mg 08/17/18 16:41 08/17/18 17:04 Xanax PO 1 mg Q8H PRN Administration Anxiety Amlodipine Besylate 10 mg 08/15/18 10:00 08/18/18 10:30 Norvasc PO 10 mg DAILY KRISS Administration Aspirin 81 mg 08/15/18 10:00 08/18/18 10:30 Baby Aspirin PO 81 mg QDAY KRISS Administration Atorvastatin Calcium 20 mg 08/14/18 22:00 08/17/18 22:12 Lipitor PO 20 mg QHS KRISS Administration Cinacalcet 30 mg 08/16/18 16:00 08/18/18 10:29 Sensipar PO 30 mg QDAY KRISS Administration Fluconazole 100 mg 08/16/18 10:00 08/18/18 10:29 Diflucan PO 100 mg QDAY KRISS Administration Heparin Sodium (Porcine) 5,000 unit 08/14/18 10:00 08/18/18 10:33 Heparin SUB-Q 5,000 unit Q12HR KRISS Administration Hydralazine HCl 10 mg 08/17/18 05:52 08/17/18 06:06 Apresoline IV 10 mg Q4H PRN Administration Blood Pressure Ceftriaxone Sodium 1 gm in 50 mls @ 100 mls/hr 08/14/18 10:00 08/18/18 10:20 Rocephin/Ns 1 Gm/50 Ml IV 100 mls/hr Q24HR KRISS Administration Protocol Memantine 10 mg 08/14/18 22:00 08/18/18 10:29 Namenda PO 10 mg BID KRISS Administration Metoprolol Tartrate 50 mg 08/15/18 10:00 08/18/18 10:32 Lopressor PO 50 mg BID KRISS Administration Multivitamins/Minerals 1 each 08/15/18 10:00 08/18/18 10:30 Theragran-M Tab PO 1 each DAILY KRISS Administration Nystatin 100,000 unit 08/16/18 20:00 08/18/18 08:39 Nystatin PO 100,000 unit TID KRISS Administration Ondansetron HCl 4 mg 08/13/18 23:49 Zofran IV Q8H PRN Nausea And Vomiting Pantoprazole Sodium 20 mg 08/17/18 10:00 08/18/18 10:30 Protonix PO 20 mg QDAY KRISS Administration Quetiapine Fumarate 25 mg 08/16/18 22:00 08/17/18 22:12 Seroquel PO 25 mg QHS KRISS Administration Sertraline HCl 100 mg 08/16/18 16:00 08/18/18 10:29 Zoloft PO 100 mg QDAY KRISS Administration Sevelamer Carbonate 800 mg 08/16/18 16:00 08/18/18 10:29 Renvela PO 800 mg DAILY KRISS Administration Sodium Bicarbonate 1,300 mg 08/15/18 22:00 08/18/18 10:29 Sodium Bicarbonate PO 1,300 mg BID KRISS Administration Sodium Chloride 10 ml 08/14/18 10:00 08/18/18 10:30 Sodium Chloride Flush Syringe 10 Ml IV 10 ml BID KRISS Administration Sodium Chloride 10 ml 08/13/18 23:49 Sodium Chloride Flush Syringe 10 Ml IV PRN PRN LINE FLUSH
[2018-08-18 13:25] VITALS: BP 181/45
== END 2018-08-18 13:50 | DRG 689 ==
LOC: ED 20:13 → 4A 23:50
PROVIDERS: ADMIT Internal Medicine; ATTEND Internal Medicine
DX: N39.0 Urinary tract infection, site not specified (principal); N17.0 Acute kidney failure with tubular necrosis; E87.0 Hyperosmolality and hypernatremia; E87.2 Acidosis; B37.0 Candidal stomatitis; R73.9 Hyperglycemia, unspecified; I12.9 Hypertensive chronic kidney disease with stage 1 through stage 4 chronic kidney disease, or unspecified chronic kidney disease; N18.3 Chronic kidney disease, stage 3 (moderate); D72.829 Elevated white blood cell count, unspecified; F03.90 Unspecified dementia, unspecified severity, without behavioral disturbance, psychotic disturbance, mood disturbance, and anxiety; Z88.2 Allergy status to sulfonamides
CPT/HCPCS: 36415; 80048; 81001; 82270; 82962; 85025; 87086; 96365; 99285; G0378; A9270-GY; J0696; J1644; J7030; J7070